=== PATIENT | female | born 1970 | race Hispanic/Latino ===

== ENCOUNTER 2017-05-03 08:38 | Day surgery (SDC) | payer BC ==
[2017-04-22 13:36] VITALS: BMI 21.4
[2017-05-03] MEDS ORDERED: Propofol 10 mg/ml Inj (20 ML) ONE ×2 (09:38→10:10)
[2017-05-03 10:39] VITALS: RESP 16; O2SAT 100
[2017-05-03] MEDS ORDERED: Sodium Chloride 0.9% 1,000 ML IV SCH (10:45)
[2017-05-03 11:11] VITALS: BP 111/69; PULSE 70; TEMP 98.2
== END 2017-05-03 11:43 | disposition home or self-care (01) ==
LOC: ENDO 08:38
PROVIDERS: ATTEND Internal Medicine
DX: D12.3 Benign neoplasm of transverse colon (principal); D12.4 Benign neoplasm of descending colon; D12.5 Benign neoplasm of sigmoid colon; K29.50 Unspecified chronic gastritis without bleeding; B96.81 Helicobacter pylori [H. pylori] as the cause of diseases classified elsewhere; K44.9 Diaphragmatic hernia without obstruction or gangrene; K64.8 Other hemorrhoids; Z12.11 Encounter for screening for malignant neoplasm of colon; Z83.71 Family history of colonic polyps
CPT/HCPCS: 43239; 45380; 45381; 45385; 84703; 88305; 88342; J2704; J7040 ×2